=== PATIENT | male | born 1995 | race African-American/Black ===

== ENCOUNTER → 2019-02-26 | Emergency (ER) | payer OTHER ==
[~2019-02-26] VITALS: Ht 182.9 cm; Wt 109.3 kg
[~2019-02-26] MED LIST: CEFACLOR500 MG PO; IBUPROFEN800 MG PO; MUPIROCIN22 GM TOP
== END | disposition home or self-care (01) ==
LOC: ER 21:30
DX: S40.012A Contusion of left shoulder, initial encounter (principal); S70.02XA Contusion of left hip, initial encounter; V29.9XXA Motorcycle rider (driver) (passenger) injured in unspecified traffic accident, initial encounter; Y93.89 Activity, other specified; Y92.488 Other paved roadways as the place of occurrence of the external cause; Y99.8 Other external cause status